=== PATIENT | female | born 1975 | race Caucasian/White ===

== ENCOUNTER 2016-12-11 20:10 | Emergency (ER) | payer OTHER ==
[~2016-12-11] VITALS: Ht 162.6 cm; Wt 125.1 kg
[~2016-12-11 20:10] MED LIST: CIPRO500 MG PO; CYMBALTA60 MG PO; FLEXERIL10 MG PO; MEGESTROL ACETA20 MG PO; NAPROSYN500 MG PO; NAPROXEN500 MG PO; PREVACID30 MG PO; PRILOSEC OTC20 MG PO
[2016-12-11] MEDS ORDERED: SKELAXIN800 MG PO (20:34)
[2016-12-11 20:44] VITALS: BP 156/115
== END 2016-12-11 20:45 | disposition home or self-care (01) ==
LOC: EME 20:10
DX: S46.912A Strain of unspecified muscle, fascia and tendon at shoulder and upper arm level, left arm, initial encounter (principal); R03.0 Elevated blood-pressure reading, without diagnosis of hypertension; V48.0XXA Car driver injured in noncollision transport accident in nontraffic accident, initial encounter
CPT/HCPCS: 99281; 99283